=== PATIENT | male | born 2000 | race Caucasian/White ===

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

== ENCOUNTER 2018-02-01 15:38 | Emergency (ER) | payer OTHER ==
[2018-02-01 15:59] VITALS: BMI 24.4
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
[2018-02-01] MEDS ORDERED: HALOPERIDOL LACTATE 5 MG/ML IM ONE (16:32)
[2018-02-01] MEDS ORDERED: LORazepam 2 MG/ML SDV VIAL ONE (16:37)
[2018-02-01] MEDS ORDERED: HALOPERIDOL LACTATE 5 MG/ML ONE (16:37)
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
[2018-02-01 17:46] VITALS: BP 113/54; PULSE 89; TEMP 97.9
== END 2018-02-01 18:55 | disposition home or self-care (01) ==
LOC: JER 15:38
PROC: 3E033GC Introduction of Other Therapeutic Substance into Peripheral Vein, Percutaneous Approach (ICD-10-PCS; principal; 2018-02-01)
DX: S09.90XA Unspecified injury of head, initial encounter (principal); W22.8XXA Striking against or struck by other objects, initial encounter; Y93.9 Activity, unspecified; Y92.9 Unspecified place or not applicable
CPT/HCPCS: 70450-TC; 96372; 99281-25

== ENCOUNTER 2018-08-15 19:27 | Emergency (ER) | payer OTHER ==
[2018-08-15 19:47] VITALS: BP 108/62; PULSE 98; TEMP 98; BMI 27.1
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
== END 2018-08-15 20:25 | disposition home or self-care (01) ==
LOC: JERFT 19:27
DX: S00.81XA Abrasion of other part of head, initial encounter (principal); W25.XXXA Contact with sharp glass, initial encounter; Y99.8 Other external cause status; Y92.118 Other place in children's home and orphanage as the place of occurrence of the external cause; F84.0 Autistic disorder; F90.9 Attention-deficit hyperactivity disorder, unspecified type
CPT/HCPCS: 99281-25

== ENCOUNTER 2018-12-17 14:50 | Emergency (ER) | payer OTHER ==
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
[2018-12-17 15:05] VITALS: BMI 23.7
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
[2018-12-17 16:18] VITALS: BP 127/79; PULSE 102; TEMP 98.3
== END 2018-12-17 16:54 | disposition home or self-care (01) ==
LOC: JERFT 14:50
DX: S09.8XXA Other specified injuries of head, initial encounter (principal); W51.XXXA Accidental striking against or bumped into by another person, initial encounter; Y93.89 Activity, other specified; Y92.218 Other school as the place of occurrence of the external cause; Y99.8 Other external cause status; F90.9 Attention-deficit hyperactivity disorder, unspecified type; F84.0 Autistic disorder; F72 Severe intellectual disabilities
CPT/HCPCS: 70450-TC; 99283-25

== ENCOUNTER 2019-08-15 23:21 | Emergency (ER) | payer OTHER ==
[2019-08-15 23:26] VITALS: BP 127/71; PULSE 96; TEMP 98.1; BMI 22.1
--- NOTE | 2019-08-15 23:39 | PDOC ---
Attending Attestation - Resident Resident Name: Molina Green - ED Attending Attestation I have performed the following: I have examined & evaluated the patient, The case was reviewed & discussed with the resident, I agree w/resident's findings & plan - HPI HPI: 08/15/19 23:37 Pt comes with covid; keeps coming here. His O2 was low in the facility, but he is freezing because they are keeping him in an AC room; they have him rooming with a seizure kid and his hands are extremely cold. O2sat here is normal; 98% He will be discharged. - Physicial Exam PE: 08/15/19 23:43 Normal exam. Pt is breathing normally; walking about; used the bathroom, ate a meal tray; coughing all over the ER; wont keep mask on. - Medical Decision Making 08/15/19 23:44 d/c back to the facility. Discharge - Discharge Information Problems reviewed: Yes Clinical Impression/Diagnosis: COVID-19 Condition: Good Disposition: HOME - Follow up/Referral Referrals: Carol Bautista MD [Primary Care Provider] - - Patient Discharge Instructions Patient Printed Discharge Instructions: [facility]Coronavirus Instructions, [facility] [address] COVID-19 Isolation Protocol Additional Instructions: Please warm the patient's hands before measuring spO2 reading. - Post Discharge Activity
--- NOTE | 2019-08-15 23:47 | PDOC ---
History of Present Illness - General Chief Complaint: Respiratory Stated Complaint: low oxygen Time Seen by Provider: 08/15/19 23:29 History Source: [facility], [facility] Provider Exam Limitations: Clinical Condition - History of Present Illness Initial Comments: 08/15/19 23:44 Patient is a 19M with history of autism, recent admission for COVID infection. Patient was discharged today. Paperwork states he was oxygenating to 82-88%. Initially hypoxic on spo2 readings here with cold hands. Patient walking around department and eating comfortably with no apparent respiratory distress. Unable to contribute to history. Past History - Past Medical History Allergies/Adverse Reactions: Allergies Allergy/AdvReac Type Severity Reaction Status Date / Time No Known Allergies Allergy Verified 08/11/19 19:40 Home Medications: Ambulatory Orders Lawler Carbonate [Eskalith -] 300 mg PO TID 06/06/16 Lorazepam [Ativan] 2 mg PO TID 06/06/16 Polyethylene Glycol 3350 [Miralax 255 gm Btl -] 17 gm PO BID 06/06/16 Quetiapine Fumarate [Seroquel] 300 mg PO TID 06/06/16 Benztropine Mesylate 2 mg PO BID 11/30/16 Sennosides [Senna] 5 ml PO BID 11/30/16 Valproate Sodium [Depakene -] 875 mg PO BID 11/30/16 Zolpidem Tartrate [Ambien] 10 mg PO HS 02/01/18 Bacitracin - [Bacitracin Topical Ointment -] 1 applic TP QID #1 tube 08/15/18 Aripiprazole [Abilify -] 30 mg PO DAILY 08/13/19 Ergocalciferol (Vitamin D2) [Vitamin D2] 50,000 unit PO WEEKLY 08/13/19 Oseltamivir Phosphate [Tamiflu] 75 mg PO DAILY 08/13/19 Asthma: No Cancer: No Cardiac Disorders: No CVA: No COPD: No DVT: No Dialysis: No HTN: No Hypercholesterolemia: No Psychiatric Problems: No (AUTISM, ADHD) Seizures: Yes - Surgical History Cardiac Surgery: No Cholecystectomy: No Gastric Stapling: No GI Surgery: No - Immunization History Immunization Up to Date: Yes - Psycho Social/Smoking Cessation Hx Smoking History: Never smoked Have you smoked in the past 12 months: No Hx Alcohol Use: No Drug/Substance Use Hx: No Substance Use Type: None Hx Substance Use Treatment: No Review of Systems - Review of Systems Able to Perform ROS?: No (2/2 clinical condition) *Physical Exam - Vital Signs Last Vital Signs Temp Pulse Resp BP Pulse Ox 98.1 F 96 H 25 H 127/71 81 L 08/15/19 23:23 08/15/19 23:23 08/15/19 23:23 08/15/19 23:23 08/15/19 23:23 - Physical Exam 08/15/19 23:46 GENERAL: Awake, alert, and fully oriented, in no acute distress HEAD: No signs of trauma EYES: PERRLA, EOMI, sclera anicteric, conjunctiva clear ENT: Auricles normal inspection, hearing grossly normal, nares patent, oropharynx clear without exudates. Moist mucosa NECK: Normal ROM, supple, no lymphadenopathy, JVD, or masses LUNGS: No distress, speaks full sentences, clear to auscultation bilaterally HEART: Regular rate and rhythm, normal S1 and S2, no murmurs, rubs or gallops, peripheral pulses normal and equal bilaterally. ABDOMEN: Soft, nontender, normoactive bowel sounds. No guarding, no rebound. No masses EXTREMITIES: Normal inspection, Normal range of motion, no edema. No clubbing or cyanosis. NEUROLOGICAL: Cranial nerves II through XII grossly intact. Normal gait, no focal sensorimotor deficits SKIN: Warm, Dry, normal turgor, no rashes or lesions noted. Medical Decision Making - Medical Decision Making 08/15/19 23:46 Patient is 19M here today with reports of hypoxia. Hands warmed. SpO2 reading now 98%. Will discharge home. Case discussed to Dr Bautista. [facility]ed back to [facility]. Discharge - Discharge Information Problems reviewed: Yes Clinical Impression/Diagnosis: COVID-19 Condition: Good Disposition: HOME - Admission No - Follow up/Referral - Patient Discharge Instructions Patient Printed Discharge Instructions: [facility]-Coronavirus Instructions, R- [facility] COVID-19 Isolation Protocol Additional Instructions: Please warm the patient's hands before measuring spO2 reading. - Post Discharge Activity
== END 2019-08-16 02:35 | disposition home or self-care (01) ==
LOC: JER 23:21
DX: R09.02 Hypoxemia (principal); B97.29 Other coronavirus as the cause of diseases classified elsewhere
CPT/HCPCS: 99283-25

== ENCOUNTER 2020-08-15 21:27 | Emergency (ER) | payer OTHER ==
[2020-08-15 21:39] VITALS: BP 115/67; PULSE 102; TEMP 98.1; BMI 23.1
[2020-08-15] MEDS ORDERED: diphenhydrAMINE HCL 25 MG CAPSULE (FP) PO ONE (23:16)
[2020-08-15] MEDS ORDERED: diphenhydrAMINE HCL 12.5 MG/5 ML UNIT-DOSE CUPS ONE (23:41)
== END 2020-08-16 02:49 | disposition home or self-care (01) ==
LOC: JER 21:27
DX: S00.81XA Abrasion of other part of head, initial encounter (principal); W50.0XXA Accidental hit or strike by another person, initial encounter
CPT/HCPCS: 70450-TC; 99284-25